=== PATIENT | male | born 1965 | race Caucasian/White ===

== ENCOUNTER 2023-04-23 19:38 | Emergency (ER) | payer OTHER, MEDICAID ==
[~2023-04-23] VITALS: Ht 170.2 cm; Wt 82.0 kg
[2023-04-23 19:48] VITALS: RESP 18; O2SAT 97
[2023-04-23 20:54] LABS: BASOPHILS % 2.2 % (0.0-2.0); EOSINOPHILS % 6.6 % (0.0-5.0); HEMATOCRIT. 45.2 % (42.0-52.0); HEMOGLOBIN. 15.7 g/dL (14.0-18.0); LYMPHOCYTES % 30.7 % (20.0-50.0); MEAN CORPUSCULAR HEMOGLOBIN 31.6 pg (28.0-32.0); MEAN CORPUSCULAR HGB CONC 34.7 g/dL (31.0-37.0); MEAN CORPUSCULAR VOLUME 90.9 fL (80.0-94.0); MEAN PLATELET VOLUME 8.1 fl (7.4-10.4); MONOCYTES % 7.7 % (2.0-8.0); NEUTROPHILS % 52.8 % (40.0-76.0); PLATELET 250 x1000/uL (130-400); RED BLOOD CELL COUNT 4.97 mill/uL (4.7-6.1); RED CELL DISTRIBUTION WIDTH 13.9 % (11.6-14.6); WHITE BLOOD COUNT 8.4 x1000/uL (4.5-11.0)
[2023-04-23 21:10] LABS: ALANINE AMINOTRANSFERASE 21 IU/L (10-49); ASPARTATE AMINOTRANSFERASE 23 IU/L (<34); BILIRUBIN TOTAL 0.4 mg/dL (0.1-1.0); CALCIUM 9.2 mg/dL (8.7-10.4); CARBON DIOXIDE 24 mEq/L (21-32); CHLORIDE 108 mEq/L (98-107); CREATININE 0.9 mg/dL (0.6-1.3); GLUCOSE 128 mg/dL (70-105); POTASSIUM 3.8 mEq/L (3.5-5.1); SODIUM 138 mEq/L (136-145); TROPONIN I HIGH SENSITIVITY 9 ng/L (3.0-53); UREA NITROGEN BLOOD 11 mg/dL (9-23)
[2023-04-23 21:12] LABS: ETHANOL BLOOD < 10 mg/dL (<10)
[2023-04-23 21:30] LABS: CLARITY URINE CLEAR (CLEAR); COLOR URINE YELLOW (YELLOW); GLUCOSE URINE NEGATIVE (NEGATIVE); KETONES URINE NEGATIVE (NEGATIVE); LEUKOCYTE ESTERASE URINE NEGATIVE (NEGATIVE); NITRITE URINE NEGATIVE (NEGATIVE); OCCULT BLOOD URINE NEGATIVE (NEGATIVE); PROTEIN URINE NEGATIVE (NEGATIVE); SPECIFIC GRAVITY URINE 1.016 (1.005-1.030)
[2023-04-23 22:23] VITALS: BP 149/78; PULSE 79; TEMP 97.7
== END 2023-04-23 22:25 | disposition home or self-care (01) ==
LOC: ER 19:38
DX: R07.89 Other chest pain (principal); M54.12 Radiculopathy, cervical region; E11.9 Type 2 diabetes mellitus without complications; Z98.890 Other specified postprocedural states
CPT/HCPCS: 36415; 71045; 80053; 80320; 81003; 82962; 84484; 85025; 93005; 99285; G0480

== ENCOUNTER 2024-11-12 20:19 | Emergency (ER) | payer MEDICARE, MEDICAID ==
[~2024-11-12] VITALS: Ht 170.2 cm; Wt 76.3 kg
[2024-11-12 20:33] VITALS: O2SAT 100
[2024-11-12] MEDS ORDERED: ACET-2708 MT (22:44)
[2024-11-12] MEDS ORDERED: NAPR-679 MT (22:44)
[2024-11-12] MEDS: KETOROLAC 30MG/ML VIAL IM ONE (22:59)
[2024-11-12] MEDS: ACETAMINOPHEN 325MG TABLET PO ONE (22:59)
[2024-11-12 23:00] VITALS: BP 131/65; PULSE 68; RESP 12; TEMP 36.8; O2SAT 100
== END 2024-11-12 23:00 | disposition home or self-care (01) ==
LOC: ER 20:19
DX: M17.11 Unilateral primary osteoarthritis, right knee (principal); Z79.1 Long term (current) use of non-steroidal anti-inflammatories (NSAID); E11.9 Type 2 diabetes mellitus without complications; Z79.899 Other long term (current) drug therapy; Z98.890 Other specified postprocedural states
CPT/HCPCS: 99283; 73564; 96372; J1885; A6449